=== PATIENT | female | born 1990 | race Caucasian/White ===

== ENCOUNTER → 2018-04-17 | Emergency (ER) | payer BC ==
[~2018-04-17] VITALS: Ht 157.5 cm; Wt 74.8 kg
== END | disposition left against medical advice (07) ==
LOC: ER 22:54
DX: R51 Headache (principal)

== ENCOUNTER → 2018-04-17 | Emergency (ER) | payer BC ==
[~2018-04-17] VITALS: Ht 162.6 cm; Wt 74.8 kg
== END | disposition left against medical advice (07) ==
LOC: ER 11:44
DX: Z53.20 Procedure and treatment not carried out because of patient's decision for unspecified reasons (principal)